=== PATIENT | male | born 1990 | race African-American/Black ===

== ENCOUNTER 2023-06-12 23:14 | Emergency (ER) | payer SELFPAY ==
[2023-06-12 23:31] VITALS: BP 103/66; PULSE 78; RESP 18; TEMP 98.3; BMI 30.2
[2023-06-13] MEDS ORDERED: METOCLOPRAMIDE HCL 10 MG TABLET (FP) PO ONE ×2 (00:14→00:23)
== END 2023-06-13 00:49 | disposition home or self-care (01) ==
LOC: JER 23:14
DX: R51.9 Headache, unspecified (principal); R11.0 Nausea; R05.9 Cough, unspecified; J00 Acute nasopharyngitis [common cold]; Z20.822 Contact with and (suspected) exposure to COVID-19
CPT/HCPCS: 0241U-QW; 70450-TC; 99284-25